=== PATIENT | male | born 1950 | race Caucasian/White ===

== ENCOUNTER → 2019-01-28 | Outpatient (CLI) | payer MEDICARE, BC ==
[2019-01-28 12:17] LABS: CHLORIDE,CL 104 mmol/L (98-107); SODIUM,NA 140 mmol/L (136-145)
== END ==
LOC: LL.NPLAB 12:00
PROVIDERS: ATTEND Nurse Practitioner Family
DX: I10 Essential (primary) hypertension (principal); R07.9 Chest pain, unspecified
CPT/HCPCS: 80048; 83735

== ENCOUNTER → 2019-02-03 | Outpatient (CLI) | payer MEDICARE, BC | LOC: LL.MRI 08:01 | PROVIDERS: ATTEND Nurse Practitioner Family | DX: M54.6 Pain in thoracic spine (principal); M48.04 Spinal stenosis, thoracic region | CPT/HCPCS: 72146 ==

== ENCOUNTER 2019-03-10 09:57 | Emergency (ER) | payer MEDICARE, BC ==
--- NOTE | 2019-03-10 10:05 | EDM.PDOC ---
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 this morning. No history of fall, head injury, loss of consciousness, change in mental status, paresthesias, neurological deficits, neck/back pain, etc. No treatment or medications for his his injuries to this point, and he has not injured this ankle in the past. His ankle pain does radiate into his left knee, however no joint instability in his knee at this time. The patient denies any chest pain/pressure, heart flutter, dizziness, orthostasis, orthopnea, diaphoresis, paresthesias, recent decreased exercise tolerance, or any other anginal-type symptoms. No recent history of abdominal pain, heartburn, nausea, diarrhea, melena, gross hematochezia, or any food intolerance, including fatty foods, etc.. The patient also denies any recent fever, cough, wheezing, dyspnea, etc.. Onset: Today, Sudden Onset Date: 03/10/19 Onset Time: 09:30 Duration: Constant Location: Reports: Lower Extremity, Left, Radiates to (As above). 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: Other (see below) (None) Left Ankle Pain Score (Numeric/FACES): 10 - Related Data Allergies Allergy/AdvReac Type Severity Reaction Status Date / Time No Known Allergies Allergy Verified 03/10/19 10:14 Home Meds: Home Meds Pantoprazole [ProTONIX] 40 mg PO QAM 05/06/13 [History] Fenofibrate,Micronized [Fenofibrate] 134 mg PO Q2D 01/31/16 [History] Losartan [Cozaar] 50 mg PO QAM 01/31/16 [History] Sertraline [Zoloft] 50 mg PO DAILY 03/10/19 [History] traMADol [Ultram] 50 mg PO Q4H PRN #10 tab 03/10/19 [Rx] Past Medical History HEENT History: Reports: Impaired Vision, Other (See Below) Other HEENT History: The patient wears glasses Cardiovascular History: Reports: Arrhythmia, High Cholesterol, Hypertension, Other (See Below). Denies: CAD, NE Other Cardiovascular History: Dyslipidemia. PVCs with exercise. Incomplete right bundle branch block. Respiratory History: Reports: COPD, Sleep Apnea, Other (See Below) Other Respiratory History: COPD by chest x-ray. Gastrointestinal History: Reports: Diverticulosis, Gastritis, GERD, Hiatal Hernia, Other (See Below). Denies: PUD Other Gastrointestinal History: History of sigmoid diverticulitis on 01/31/16. Large sliding hiatal hernia with esophagitis and gastritis by EGD with negative H. pylori biopsies. Large duodenal diverticulum by upper GI on 07/20/11. Genitourinary History: Reports: BPH Musculoskeletal History: Reports: Arthritis, Back Pain, Chronic, Osteoarthritis , Other (See Below) Other Musculoskeletal History: Left Achilles tendon nidus in January 2012. Previous rotator cuff tear of left shoulder and 2013. Psychiatric History: Reports: Anxiety, Depression Endocrine/Metabolic History: Reports: Obesity/BMI 30+ - Infectious Disease History Infectious Disease History: Reports: Chicken Pox, Measles - Past Surgical History GI Surgical History: Reports: Colonoscopy, EGD, Hernia, Abdominal, Other (See Below) Other GI Surgeries/Procedures: EGD with biopsies on 05/12/10 and 05/11/05. Umbilical hernia repair. Musculoskeletal Surgical History: Reports: Shoulder Surgery, Other (See Below) Other Musculoskeletal Surgeries/Procedures:: Left shoulder surgery in December in December 2012 with right shoulder surgery in 2000. Left carpal tunnel release on 05/08/13. - Past Imaging History Past Imaging History: Reports: CAT Scan (Abdomen and pelvis on 02/01/16 and 10/21.), MRI (Thoracic spine on 02/03/19. MRI of the left shoulder on 07/02/12. MRI of the left ankle on 01/30/12. MRI of the lumbar spine on 06/06/11.), Stress Testing (Negative Cardiolite stress test on 04/15/09 with ejection fraction of 64% . Previous Cardiolite stress test on 12/18/03.), Ultrasound (Renal ultrasound bilaterally on 10/18/15. Testicular ultrasound on 10/18/04. Right upper quadrant abdominal ultrasound on 04/13/09.), Upper GI X-Ray/Series (07/20/11.) Social & Family History - Family History Cardiac: Reports: CAD, Heart Murmur, NE, Other (See Below) Other Cardiac Family History: Mother with valve replacements 2. Father from an NE at age 75. 2 cousins with MIs in their 50s. Endocrine/Metabolic: Reports: Diabetes, type II, Other (See Below) Other Endocrine/Metabolic Family History: Sister with diabetes mellitus. Oncologic: Reports: Skin, Other (See Below) Other Oncologic Family History: Sister with melanoma with brother having unknown type of skin cancer. - Tobacco Use Smoking Status *Q: Never Smoker Tobacco Use Within Last Twelve Months: No Used Tobacco, but Quit: No Smoking Cessation Information Provided To Patient: No Second Hand Smoke Exposure: No Second Hand Smoke Education Provided: No - Living Situation & Occupation Living situation: Reports: ED ROS GENERAL - Review of Systems Review Of Systems: Comprehensive ROS is negative, except as noted in HPI. ED EXAM, GENERAL - Physical Exam Exam: See Below Exam Limited By: No Limitations General Appearance: Alert, WD/WN, No Apparent Distress Head: Atraumatic, Normocephalic. No: Facial Swelling, Facial Tenderness, Sinus Tenderness Neck: Normal Inspection, Supple, Non-Tender, Full Range of Motion. No: Lymphadenopathy (L), Lymphadenopathy (R), Thyromegaly Respiratory/Chest: No Respiratory Distress, Lungs Clear, Normal Breath Sounds, No Accessory Muscle Use, Chest Non-Tender. No: Pleural Rub, Retractions Cardiovascular: Normal Peripheral Pulses, Regular Rate, Rhythm, No Edema, No Gallop, No JVD, No Murmur, No Rub. No: Gallop/S3, Gallop/S4, Friction Rub Peripheral Pulses: 2+: Radial (L), Radial (R), Dorsalis Pedis (L), Dorsalis Pedis (R) GI/Abdominal: Normal Bowel Sounds, Soft, Non-Tender, No Organomegaly, No Distention, No Abnormal Bruit, No Mass, Pelvis Stable, Other (Obese). No: Guarding (Male) Exam: Deferred Rectal (Males) Exam: Deferred Back Exam: Normal Inspection, Full Range of Motion. No: CVA Tenderness (L), CVA Tenderness (R), Muscle Spasm Extremities: No Pedal Edema, Normal Capillary Refill, Joint Swelling (Moderate left medial malleolar swelling with moderate to severe tenderness in that area by palpation), Leg Pain (Left ankle as above), Other (Severely unstable left ankle including medial dislocation with movement. Multiple left proximal fibular tenderness with no crepitation, deformity, knee effusion, instability, etc. in this area. No evidence of other injuries.). No: Ronnell's Sign, Limited Range of Motion (Left ankle secondary to fracture) Neurological: Alert, Oriented, CN II-XII Intact, Normal Cognition, Normal Gait, No Motor/Sensory Deficits Psychiatric: Normal Affect, Normal Mood Skin Exam: Warm, Dry, Intact, Normal Color, No Rash. No: Diaphoretic, Ecchymosis, Wound/Incision Lymphatic: No Adenopathy ED GENERAL MEDICAL PROCEDURES - Splinting Left Lower Extremity Splint Site: Left ankle Pre-procedure NV status: Normal Post-procedure NV status: Normal Splint Material: Fiberglass (Preformed padded with 6" x 30" splint used for stirrups splint and 4" x 15" splint used for posterior plantar splint), Other ( Secured with 4 inch Tyler wraps 2) Splint Design: Stirrup, Posterior Applied & Form Fitted By: Provider Provider Post-Splint Application NV Check: NV Status Normal, Good Position Complications: No Course - Vital Signs Last Recorded V/S: Last Vital Signs Temp 36.0 C 03/10/19 09:58 Pulse 56 L 03/10/19 12:40 Resp 16 03/10/19 12:40 BP 145/66 H 03/10/19 12:40 Pulse Ox 97 03/10/19 12:40 Vital Signs - 24 hr 03/10/19 03/10/19 03/10/19 09:58 10:15 10:30 Temperature [ 36.0 C Temporal] Pulse, 76 57 L 57 L Peripheral [ Pulse Oximetry] Respiratory 18 16 18 Rate Blood Pressure 129/47 L 136/70 145/54 H [Arm] O2 Sat by Pulse 97 97 97 Oximetry 03/10/19 03/10/19 03/10/19 10:45 10:55 11:10 Temperature [ Temporal] Pulse, 56 L 57 L 59 L Peripheral [ Pulse Oximetry] Respiratory 18 18 16 Rate Blood Pressure 123/52 L 122/67 121/58 L [Arm] O2 Sat by Pulse 95 95 96 Oximetry 03/10/19 03/10/19 03/10/19 11:25 11:45 11:55 Temperature [ Temporal] Pulse, 54 L 62 57 L Peripheral [ Pulse Oximetry] Respiratory 16 16 18 Rate Blood Pressure 113/60 119/83 140/67 [Arm] O2 Sat by Pulse 95 100 98 Oximetry 03/10/19 03/10/19 03/10/19 12:10 12:25 12:40 Temperature [ Temporal] Pulse, 55 L 57 L 56 L Peripheral [ Pulse Oximetry] Respiratory 18 18 16 Rate Blood Pressure 144/64 H 135/71 145/66 H [Arm] O2 Sat by Pulse 96 96 97 Oximetry - Orders/Labs/Meds Orders: Active Orders 24 hr Category Date Time Status Peripheral IV Care [RC] . DIRECTED Care 03/10/19 10:06 Active Ankle 2V Lt [CR] Stat Exams 03/10/19 11:14 Taken Ankle Min 3V Lt [CR] Stat Exams 03/10/19 10:07 Taken Knee 1V or 2V Lt [CR] Stat Exams 03/10/19 10:17 Taken Sodium Chloride 0.9% [Saline Flush] Med 03/10/19 10:06 Active 10 ml FLUSH ASDIRECTED PRN Durable Medical Equipment for Discharge [DME for Oth 03/10/19 12:11 Ordered Discharge] [COMM] Routine Obtain Past Medical Record [OM.PC] Routine Oth 03/10/19 10:05 Active Peripheral IV Insertion Adult [OM.PC] Routine Oth 03/10/19 10:06 Ordered Medication Orders Sodium Chloride (Saline Flush) 10 ml FLUSH ASDIRECTED PRN PRN Reason: Keep Vein Open Labs: None Meds: Medications Generic Name Dose Route Start Last Admin Trade Name Freq PRN Reason Stop Dose Admin Sodium Chloride 10 ml 03/10/19 10:06 Saline Flush FLUSH ASDIRECTED PRN Keep Vein Open Discontinued Medications Generic Name Dose Route Start Last Admin Trade Name Freq PRN Reason Stop Dose Admin Fentanyl 100 mcg 03/10/19 10:06 03/10/19 10:16 Sublimaze IVPUSH 03/10/19 10:07 100 mcg ONETIME ONE Administration Hydromorphone HCl 1 mg 03/10/19 11:56 03/10/19 12:02 Dilaudid IVPUSH 03/10/19 11:57 1 mg ONETIME ONE Administration Ondansetron HCl 4 mg 03/10/19 10:06 03/10/19 10:15 Zofran IVPUSH 03/10/19 10:07 4 mg ONETIME ONE Administration - Radiology Interpretation Free Text/Narrative:: X-rays of the left knee, 2 views, shows no evidence of fracture, dislocation, etc. X-rays of the left ankle, 3 views, shows evidence of a comminuted mildly angulated distal fibular shaft fracture with medial displacement of the ankle mortise X-rays of the left ankle, 2 views post-splint placement, shows mild improvement of the ankle mortise however some mildly increased angulation of the distal fibular fracture. Departure - Departure Time of Disposition: 13:00 Disposition: Home, Self-Care 01 Preliminary Cause of *Q: Sepsis & Multi System Organ Failure Clinical Impression: Dyslipidemia, Peptic reflux disease Closed left ankle fracture Qualifiers: Encounter type: initial encounter Qualified Code(s): S82.892A - Other fracture of left lower leg, initial encounter for closed fracture Hypertension Qualifiers: Hypertension type: essential hypertension Qualified Code(s): I10 - Essential ( primary) hypertension Osteoarthritis Qualifiers: Osteoarthritis location: multiple joints Osteoarthritis type: primary Qualified Code(s): M15.0 - Primary generalized (osteo)arthritis COPD (chronic obstructive pulmonary disease) Qualifiers: COPD type: emphysema Emphysema type: panlobular Qualified Code(s): J43.1 - Panlobular emphysema - Discharge Information *PRESCRIPTION DRUG MONITORING PROGRAM REVIEWED*: Not Applicable *COPY OF PRESCRIPTION DRUG MONITORING REPORT IN PATIENT VITOR: Not Applicable Prescriptions: traMADol [Ultram] 50 mg PO Q4H PRN #10 tab PRN Reason: Pain (Severe 7-10) Instructions: Tibial and Fibular Fractures, Ankle Fracture Referrals: Brandi Herrera NP [Primary Care Provider] - Forms: ED Department Discharge Additional Instructions: 1. Follow-up with Dr. Wise, orthopedic surgeon at [facility] in [place] tomorrow morning with that office to contact you later today with exact specifics of time, planned surgery, etc. as discussed. 2. Tylenol 650 mg by mouth every 4 hours and/or OTC ibuprofen 2-3 tabs by mouth every 6 hours with food as directed./needed. You may stagger these medications for 48-72 hours only, which essentially means that you are receiving a pain medication about every 2 hours. 3. Leg elevation and ice packs as discussed 4. Sedation, nausea and confusion precautions with tramadol as discussed with this medication to be used with extreme discretion for severe breakthrough pain only. 5. Sedation precautions with no driving, etc. for 18 hours because of emergency room medications. 6. Use crutches at all times with no weightbearing of your left foot/leg 7. Immediately after this visit verify that your cellular telephone's voicemail has been activated and is empty. Also verify that your home telephone 's answering machine is operating properly and has space to receive messages. Note that it is sometimes necessary for us to be able to contact you at a later date to discuss your medical care. 8. Please remember that we are ALWAYS here for you and want to answer any questions you may have. Feel free to call the hospital any time and we call you back MEGAN. Sepsis Event Note - Focused Exam Vital Signs: Vital Signs Temp Pulse Resp BP Pulse Ox 03/10/19 12:40 56 L 16 145/66 H 97 03/10/19 12:25 57 L 18 135/71 96 03/10/19 12:10 55 L 18 144/64 H 96 03/10/19 11:55 57 L 18 140/67 98 03/10/19 11:45 62 16 119/83 100 03/10/19 11:25 54 L 16 113/60 95 03/10/19 11:10 59 L 16 121/58 L 96 03/10/19 10:55 57 L 18 122/67 95 03/10/19 10:45 56 L 18 123/52 L 95 12/30/19 10:30 57 L 18 145/54 H 97 03/10/19 10:15 57 L 16 136/70 97 03/10/19 09:58 36.0 C 76 18 129/47 L 97 Date Exam was Performed: 03/10/19 Time Exam was Performed: 14:24 - Problem List & Annotations (1) Closed left ankle fracture SNOMED Code(s): 51434096 Code(s): S82.892A - OTH FRACTURE OF LEFT LOWER LEG, INIT FOR CLOS FX Status : Acute Priority: High Current Visit: Yes Onset Date: 03/10/19 Annotation/Comment:: Very unstable left ankle fracture by exam as above. Patient was placed in a posterior plantar and stirrup splint as above with improved position of the ankle mortise, however some increased angulation of the fibular fracture. Telephone consultation at 11:[address] Burk, orthopedic surgeon at [facility] in [place], who does agree to evaluate the patient in his office at 11:30 a.m. tomorrow morning, with no further treatment recommendations given. The patient did require aggressive pain control in the emergency room as above. Appropriate information provided to the patient including activity restrictions, etc. Probable planned surgery on 03/13 per the orthopedic surgeon. Qualifiers: Encounter type: initial encounter Qualified Code(s): S82.892A - Other fracture of left lower leg, initial encounter for closed fracture (2) Hypertension SNOMED Code(s): 87627773 Code(s): I10 - ESSENTIAL (PRIMARY) HYPERTENSION Status: Chronic Priority : Medium Current Visit: Yes Annotation/Comment:: Blood pressures stable in the emergency room. Continue to observe closely by his regular provider. Qualifiers: Hypertension type: essential hypertension Qualified Code(s): I10 - Essential (primary) hypertension (3) Dyslipidemia SNOMED Code(s): 371968901 Code(s): E78.5 - HYPERLIPIDEMIA, UNSPECIFIED Status: Chronic Priority: Medium Current Visit: Yes Annotation/Comment:: Weight loss in moderation advisable and strongly encouraged. Note that the patient's regular provider, HERNAN Zavala at the [facility], apparently decreased his gemfibrozil therapy to an every 2 day regimen secondary to improved recent lipid profile. The patient and his were counseled on therapeutic drug levels with consideration of increasing his gemfibrozil back to daily regimen depending on his clinical course. Once again weight loss and compliance with his low-fat, low cholesterol diet should be his primary concern. Patient did not have any problems with intolerance to the gemfibrozil in the past by his history. (4) Osteoarthritis SNOMED Code(s): 319395015 Code(s): M19.90 - UNSPECIFIED OSTEOARTHRITIS, UNSPECIFIED SITE Status: Acute Current Visit: Yes Qualifiers: Osteoarthritis location: multiple joints Osteoarthritis type: primary Qualified Code(s): M15.0 - Primary generalized (osteo)arthritis (5) Peptic reflux disease SNOMED Code(s): 635299450 Code(s): K21.9 - GASTRO-ESOPHAGEAL REFLUX DISEASE WITHOUT ESOPHAGITIS Status: Chronic Priority: Medium Current Visit: Yes Annotation/Comment:: Stable by history. (6) COPD (chronic obstructive pulmonary disease) SNOMED Code(s): 21321345 Code(s): J44.9 - CHRONIC OBSTRUCTIVE PULMONARY DISEASE, UNSPECIFIED Status : Chronic Priority: Medium Current Visit: Yes Annotation/Comment:: COPD by chest x-ray with no recent fever, bronchitic type symptoms, etc. Qualifiers: COPD type: emphysema Emphysema type: panlobular Qualified Code(s): J43.1 - Panlobular emphysema - Problem List Review Problem List Initiated/Reviewed/Updated: Yes - My Orders Last 24 Hours: My Active Orders 03/10/19 10:05 Obtain Past Medical Record [OM.PC] Routine 03/10/19 10:06 Peripheral IV Care [RC] . DIRECTED Sodium Chloride 0.9% [Saline Flush] 10 ml FLUSH ASDIRECTED PRN Peripheral IV Insertion Adult [OM.PC] Routine 03/10/19 10:07 Ankle Min 3V Lt [CR] Stat 03/10/19 10:17 Knee 1V or 2V Lt [CR] Stat 03/10/19 11:14 Ankle 2V Lt [CR] Stat 03/10/19 12:11 Durable Medical Equipment for Discharge [DME for Discharge] [COMM] Routine - Assessment/Plan Last 24 Hours: My Active Orders 03/10/19 10:05 Obtain Past Medical Record [OM.PC] Routine 03/10/19 10:06 Peripheral IV Care [RC] . DIRECTED Sodium Chloride 0.9% [Saline Flush] 10 ml FLUSH ASDIRECTED PRN Peripheral IV Insertion Adult [OM.PC] Routine 03/10/19 10:07 Ankle Min 3V Lt [CR] Stat 03/10/19 10:17 Knee 1V or 2V Lt [CR] Stat 03/10/19 11:14 Ankle 2V Lt [CR] Stat 03/10/19 12:11 Durable Medical Equipment for Discharge [DME for Discharge] [COMM] Routine Assessment:: As above Plan: As above. Extensive precautions were given to the patient and his , who are in agreement with the treatment plan. See Patient Instructions for further treatment and plan.
[2019-03-10] MEDS ORDERED: Sodium Chloride 0.9% 10 ML Syringe FLUSH PRN (10:06)
[2019-03-10] MEDS: Ondansetron 4 MG/2 ML SDV IVPUSH ONE (10:15)
[2019-03-10] MEDS: fentaNYL 100 MCG/2 ML SDV IVPUSH ONE (10:16)
[2019-03-10] MEDS: HYDROmorphone 1 MG/ML Syringe IVPUSH ONE (12:02)
[2019-03-10 14:01] VITALS: BP 145/66; PULSE 56
== END 2019-03-10 13:00 | disposition home or self-care (01) ==
LOC: LL.ED 09:57
DX: S82.832A Other fracture of upper and lower end of left fibula, initial encounter for closed fracture (principal); M15.0 Primary generalized (osteo)arthritis; J43.1 Panlobular emphysema; K21.9 Gastro-esophageal reflux disease without esophagitis; E78.5 Hyperlipidemia, unspecified; I10 Essential (primary) hypertension; I25.2 Old myocardial infarction; Z79.899 Other long term (current) drug therapy; W01.0XXA Fall on same level from slipping, tripping and stumbling without subsequent striking against object, initial encounter; Y93.54 Activity, bowling
CPT/HCPCS: 29515; 73560-LT; 73600-LT; 73610-LT; 96374; 96375; 99283; 99283-25; J1170; J2405; J3010

== ENCOUNTER 2020-07-14 14:25 | Emergency (ER) | payer MEDICARE, BC ==
[2020-07-14 15:28] LABS: CHLORIDE,CL 105 mmol/L (98-107); SODIUM,NA 140 mmol/L (136-145)
--- NOTE | 2020-07-14 15:33 | EDM.PDOC ---
ED HPI GENERAL MEDICAL PROBLEM - General Chief Complaint: General Stated Complaint: shoulder/neck and jaw pain at times Time Seen by Provider: 07/14/20 14:37 Source of Information: Reports: Patient History Limitations: Reports: No Limitations - History of Present Illness INITIAL COMMENTS - FREE TEXT/NARRATIVE: Pt. presents to ER with complaints of posterior and lateral neck pain, hypertension, and tingling in fingers. Pt. states that he has driven from [place] to [place] and got home last night. He states that he started experiencing these symptoms when he was outside working in his yard. He states that he went to the pharmacy and had his blood pressure checked with machine. He states that his BP was in the 160s/90s range. He states that he went to the clinic and he was told to come to the ER. Pt. states that the discomfort in his neck is resolving. He states that it is worse when he turns his head. Denies any substernal chest pain. Denies any shortness of breath/palpitations. Pt. states that he was no diaphoretic. Denies any nausea or vomiting. Overall, pt. PMH from a cardiovascular standpoint is good. His lipid profile from 2019 is excellent. He states that he has "never smoked a cigarette in his life". Pt. his on medication for HTN but overall this is under good control. Onset: Today Duration: Waxing/Waning Location: Reports: Neck, Other Quality: Reports: Ache shoulder/neck Pain Score (Numeric/FACES): 0 - Related Data Allergies Allergy/AdvReac Type Severity Reaction Status Date / Time No Known Allergies Allergy Verified 07/14/20 14:31 Home Meds: Home Meds Pantoprazole [ProTONIX] 40 mg PO QAM 05/06/13 [History] Losartan [Cozaar] 50 mg PO QAM 01/31/16 [History] Sertraline [Zoloft] 50 mg PO DAILY 03/10/19 [History] Past Medical History HEENT History: Reports: Impaired Vision, Other (See Below) Other HEENT History: The patient wears glasses Cardiovascular History: Reports: Arrhythmia, High Cholesterol, Hypertension, Other (See Below) Other Cardiovascular History: Dyslipidemia. PVCs with exercise. Incomplete right bundle branch block. Respiratory History: Reports: COPD, Sleep Apnea, Other (See Below) Other Respiratory History: COPD by chest x-ray. Gastrointestinal History: Reports: Diverticulosis, Gastritis, GERD, Hiatal Hernia, Other (See Below) Other Gastrointestinal History: History of sigmoid diverticulitis on 01/31/16. Large sliding hiatal hernia with esophagitis and gastritis by EGD with negative H. pylori biopsies. Large duodenal diverticulum by upper GI on 07/20/11. Genitourinary History: Reports: BPH Musculoskeletal History: Reports: Arthritis, Back Pain, Chronic, Osteoarthritis, Other (See Below) Other Musculoskeletal History: Left Achilles tendon nidus in January 2012. Previous rotator cuff tear of left shoulder and 2013. Psychiatric History: Reports: Anxiety, Depression Endocrine/Metabolic History: Reports: Obesity/BMI 30+ - Infectious Disease History Infectious Disease History: Reports: Chicken Pox, Measles - Past Surgical History GI Surgical History: Reports: Colonoscopy, EGD, Hernia, Abdominal, Other (See Below) Other GI Surgeries/Procedures: EGD with biopsies on 05/12/10 and 05/11/05. Umbilical hernia repair. Musculoskeletal Surgical History: Reports: Shoulder Surgery, Other (See Below) Other Musculoskeletal Surgeries/Procedures:: Left shoulder surgery in December in December 2012 with right shoulder surgery in 2000. Left carpal tunnel release on 05/08/13. Left tibula and ankle fracture repair plate and 7 pins - Past Imaging History Past Imaging History: Reports: CAT Scan (Abdomen and pelvis on 02/01/16 and 10/22/15.), MRI (Thoracic spine on 02/03/19. MRI of the left shoulder on 07/02/12. MRI of the left ankle on 01/30/12. MRI of the lumbar spine on 06/06/11.), Stress Testing (Negative Cardiolite stress test on 04/15/09 with ejection fraction of 64%. Previous Cardiolite stress test on 12/18/03.), Ultrasound (Renal ultrasound bilaterally on 10/18/15. Testicular ultrasound on 10/18/04. Right upper quadrant abdominal ultrasound on 04/13/09.), Upper GI X-Ray/Series (07/20/11.) Social & Family History - Family History Cardiac: Reports: CAD, Heart Murmur, DE, Other (See Below) Other Cardiac Family History: Mother with valve replacements 2. Father from an DE at age 75. 2 cousins with MIs in their 50s. Endocrine/Metabolic: Reports: Diabetes, type II, Other (See Below) Other Endocrine/Metabolic Family History: Sister with diabetes mellitus. Oncologic: Reports: Skin, Other (See Below) Other Oncologic Family History: Sister with melanoma with brother having unknown type of skin cancer. - Tobacco Use Tobacco Use Status *Q: Never Tobacco User Second Hand Smoke Exposure: No - Caffeine Use Caffeine Use: Reports: Coffee Other Caffeine Use: 4-5 cups in am - Alcohol Use Days Per Week of Alcohol Use: 5 Number of Drinks Per Day: 3 Total Drinks Per Week: 15 - Recreational Drug Use Recreational Drug Use: No - Living Situation & Occupation Living situation: Reports: ED ROS GENERAL - Review of Systems Review Of Systems: See Below Constitutional: Reports: No Symptoms HEENT: Reports: No Symptoms Respiratory: Reports: No Symptoms Cardiovascular: Reports: Blood Pressure Problem. Denies: Chest Pain, Dyspnea on Exertion, Edema, Lightheadedness, Orthopnea, Palpitations, PND, Syncope Endocrine: Reports: No Symptoms GI/Abdominal: Reports: No Symptoms : Reports: No Symptoms Musculoskeletal: Reports: Neck Pain Skin: Reports: No Symptoms Neurological: Reports: No Symptoms Psychiatric: Reports: No Symptoms Hematologic/Lymphatic: Reports: No Symptoms Immunologic: Reports: No Symptoms ED EXAM, GENERAL - Physical Exam Exam: See Below Exam Limited By: No Limitations General Appearance: Alert, WD/WN, No Apparent Distress Head: Atraumatic, Normocephalic Neck: Normal Inspection, Supple, Full Range of Motion, Tender Lateral, Other (increased discomfort with movement of the head/neck.) Respiratory/Chest: No Respiratory Distress, Lungs Clear, Normal Breath Sounds, No Accessory Muscle Use, Chest Non-Tender Cardiovascular: Normal Peripheral Pulses, Regular Rate, Rhythm, No Edema, No JVD, No Murmur Peripheral Pulses: 4+: Femoral (L) GI/Abdominal: Soft, Non-Tender, No Distention, No Mass (Male) Exam: Deferred Rectal (Males) Exam: Deferred Back Exam: Normal Inspection, Full Range of Motion Extremities: Normal Inspection, Normal Range of Motion, Non-Tender, No Pedal Edema, Normal Capillary Refill Neurological: Alert, Oriented, CN II-XII Intact, Normal Cognition, Normal Gait, Normal Reflexes, No Motor/Sensory Deficits Psychiatric: Normal Affect, Normal Mood Skin Exam: Warm, Dry, Intact, Normal Color, No Rash #1 Interpretation Rhythm: NSR [place]: Normal P-Wave: Present QRS: Normal ST-T: Normal QT: Normal Comparison: NA - No Prior EKG Course - Vital Signs Last Recorded V/S: Last Vital Signs Temp 36.3 C 07/14/20 14:34 Pulse 55 L 07/14/20 14:38 Resp 17 07/14/20 14:38 BP 147/64 H 07/14/20 14:38 Pulse Ox 98 07/14/20 14:38 - Orders/Labs/Meds Orders: Active Orders 24 hr Category Date Time Status EKG Documentation Completion [RC] ASDIRECTED Care 07/14/20 14:47 Ordered Labs: Laboratory Tests 07/14/20 07/14/20 Range/Units 14:59 14:59 WBC 6.6 (4.0-10.2) K/uL RBC 4.24 L (4.33-5.41) M/uL Hgb 12.6 L (13.1-16.8) g/dL Hct 38.7 L (39.0-49.0) % MCV 91.3 (84.0-98.0) fL MCH 29.7 (28.2-33.3) pg MCHC 32.6 (31.7-36.0) g/dL RDW 12.6 (11.2-14.1) % Plt Count 205 (150-350) K/uL Neut % (Auto) 73.2 (45.0-80.0) % Lymph % (Auto) 16.5 (10.0-50.0) % [place] % (Auto) 7.3 (2.0-14.0) % Eos % (Auto) 2.7 (0.0-5.0) % Baso % (Auto) 0.3 (0.0-2.0) % Neut # (Auto) 4.83 (1.40-7.00) K/uL Lymph # (Auto) 1.09 (0.50-3.50) K/uL [place] # (Auto) 0.48 (0.00-1.00) K/uL Eos # (Auto) 0.18 (0.00-0.50) K/uL Baso # (Auto) 0.02 (0.00-0.20) K/uL Sodium 140 (136-145) mmol/L Potassium 4.2 (3.5-5.1) mmol/L Chloride 105 (98-107) mmol/L Carbon Dioxide 28.6 (21.0-32.0) mmol/L BUN 15 (7-18) mg/dL Creatinine 1.01 (0.51-1.17) mg/dL Est Cr Clr Drug Dosing 72.48 mL/min Estimated GFR (MDRD) > 60 mL/min Glucose 138 H (70-99) mg/dL Calcium 8.3 L (8.5-10.1) mg/dL Magnesium 1.7 L (1.8-2.4) mg/dL Total Bilirubin 0.5 (0.2-1.0) mg/dL AST 12 L (15-37) U/L ALT 22 (12-78) U/L Alkaline Phosphatase 65 (46-116) IU/L Troponin I 0.003 (0.000-0.056) ng/mL Total Protein 6.1 L (6.4-8.2) g/dL Albumin 3.1 L (3.4-5.0) g/dL TSH, Ultra Sensitive 2.786 (0.358-3.740) mIU/mL Departure - Departure Time of Disposition: 15:47 Disposition: Home, Self-Care 01 Clinical Impression: Neck pain Hypertension Qualifiers: Hypertension type: essential hypertension Qualified Code(s): I10 - Essential (primary) hypertension - Discharge Information Instructions: Hypertension, Adult, [id number] Referrals: Brandi Herrera NP [Primary Care Provider] - Forms: ED Department Discharge Additional Instructions: Your EKG and labs were OK. Return to ER if you start having discomfort, especially chest pain, or shortness of breath. Recheck in clinic in 10-14 days regarding your blood pressure. If you have any questions, feel free to call at any time. Sepsis Event Note (ED) - Evaluation Sepsis Screening Result: No Definite Risk - Focused Exam Vital Signs: Vital Signs Temp Pulse Resp BP Pulse Ox 07/14/20 14:38 55 L 17 147/64 H 98 07/14/20 14:34 36.3 C 56 L 18 155/73 H 98 07/14/20 14:25 57 L 18 142/75 H 98 - Problem List Review Problem List Initiated/Reviewed/Updated: Yes - My Orders Last 24 Hours: My Active Orders 07/14/20 14:47 EKG Documentation Completion [RC] ASDIRECTED - Assessment/Plan Last 24 Hours: My Active Orders 07/14/20 14:47 EKG Documentation Completion [RC] ASDIRECTED Plan: Pt. was discharged. He was able to reproduce the pain with movement of the head/neck. He was advised to follow-up in clinic in 10-14 days to address his elevated blood pressure. He affirms that he will return to ER if he has pain that is not potentiated with movement, chest pain, palpitations, shortness of breath, or lightheadedness.
[2020-07-14 16:19] VITALS: BP 146/62; PULSE 54
== END 2020-07-14 15:50 | disposition home or self-care (01) ==
LOC: LL.ED 14:25
DX: M54.2 Cervicalgia (principal); I10 Essential (primary) hypertension; E66.9 Obesity, unspecified; Z68.38 Body mass index [BMI] 38.0-38.9, adult; K21.9 Gastro-esophageal reflux disease without esophagitis; J44.9 Chronic obstructive pulmonary disease, unspecified; Z79.899 Other long term (current) drug therapy
CPT/HCPCS: 36415; 80053; 83735; 84443; 84484; 85025; 93005; 99283-25

== ENCOUNTER 2022-02-26 03:09 | Emergency (ER) | payer MEDICARE ==
[2022-02-26] MEDS: Ketorolac 15 MG/ML SDV IM ONE (03:47)
[2022-02-26] MEDS: Acetaminophen 325 MG Tab PO ONE (03:48)
[2022-02-26] MEDS: Acetaminophen/oxyCODONE 325-5 MG Tab PO ONE (03:49)
[2022-02-26 04:32] VITALS: BP 162/74; PULSE 56
== END 2022-02-26 04:29 | disposition home or self-care (01) ==
LOC: LL.ED 03:09
DX: K08.89 Other specified disorders of teeth and supporting structures (principal); I10 Essential (primary) hypertension; J44.9 Chronic obstructive pulmonary disease, unspecified; K21.9 Gastro-esophageal reflux disease without esophagitis; M19.90 Unspecified osteoarthritis, unspecified site; E66.9 Obesity, unspecified; Z68.39 Body mass index [BMI] 39.0-39.9, adult; Z79.84 Long term (current) use of oral hypoglycemic drugs; Z79.899 Other long term (current) drug therapy
CPT/HCPCS: 96372; 99282; 99284; A9270-GY; J1885

== ENCOUNTER 2023-07-08 11:30 | Emergency (ER) | payer MEDICARE ==
[2023-07-08 11:36] VITALS: BP 149/80; PULSE 58
[2023-07-08] MEDS: Take Home: Amoxicillin 875 MG Tab, 6 Tab Pack PO ONE (12:46)
== END 2023-07-08 12:40 | disposition home or self-care (01) ==
LOC: LL.ED 11:30
DX: K06.8 Other specified disorders of gingiva and edentulous alveolar ridge (principal); I10 Essential (primary) hypertension; J44.9 Chronic obstructive pulmonary disease, unspecified
CPT/HCPCS: 99282; 99283; A9270-GY